=== PATIENT | male | born 1980 | race Caucasian/White ===

== ENCOUNTER 2019-01-23 15:18 | Observation (INO) | payer OTHER, SELFPAY ==
[2019-01-23] VITALS (11 sets, daily range): BP systolic 102–121; BP diastolic 66–79; PULSE 56–73; RESP 15–16; TEMP 36.3–36.6; O2SAT 93–100; BMI 24.0
[2019-01-23] MEDS: Lactated Ringers 1,000 ML 100 ML IV (11:40)
[2019-01-23] MEDS: Bupivacaine Mpf 0.5% 30 ML VIAL (13:01)
--- NOTE | 2019-01-23 15:20 | OP.PCM_ITS ---
Problem List (1) Maxillary hypoplasia Status: Acute Report of Operation Date of Procedure: 01/23/19 Pre-Operative Diagnosis: Maxillary Transverse Hypoplasia Post-Operative Diagnosis: Same Surgery/Procedure Performed:: Maxillary Lefort 1 Osteotomy Type of Anesthesia:: General Special Medications: None Specimen's removed: None Drains: None Estimated Blood Loss (mL): 100 cc Fluids Replaced: 1000 ml Description of Procedure: Patient is a 38 yo male being treated for transverse hypoplasia of the maxilla by his ship boat or barge mate. The planned procedure destraction osteogenesis procedure.The risks benefits and potential limitations have been given to the patient and his including potential for further surgeries. The patient is taken to the OR suite after final discussion and answering any questions they have. The patient was placed on the OR table in the supine position. Anesthesia monitors placed. The patient was given IV general and intubated via the nasoendotracheal route. The patient was then prepped and draped in a sterile man ner. At this time local anesthesia was administered via the mucobuccal fold of the maxilla. At this time a full thickness mucoperiosteal flap was elevated. superiorly to the infra-orbital nerves bilateral and posterior to the pterygoid plates. At this time reciprocation saw and drills used to create osteotomy from pterygoid plates posteriorly up to the anterior nasal spine, and the right maxillary sinus wall, zygomatic buttress and lateral nasal yadav completely and bilaterally. Essentially the entire maxilla was mobile but not down fractured. The distraction device was then activated. A 2-0 vicryl suture was used as a alar cinch. At this time the surgical site was irrigated and incision closed in a V-Y fashion. All bleeding was well controlled and the patient awakened and extubated in the OR. Taken to PACU in stable condition. All sponge and needle counts correct. - Complications none
[2019-01-23] MEDS: MethylPREDNISolone 125 MG/2 ML Vial IV ×2 (17:22→23:23)
[2019-01-23] MEDS: HYDROcodone Bitartrate/Apap 5/325 Tablet PO ×2 (17:25→23:24)
[2019-01-23] MEDS: Dextrose 5%-Lactated Ringers 1,000 ML 100 ML IV (21:51)
[2019-01-24] MEDS: MethylPREDNISolone 125 MG/2 ML Vial IV ×2 (06:00→11:39)
[2019-01-24] MEDS: HYDROcodone Bitartrate/Apap 5/325 Tablet PO ×2 (06:00→11:43)
[2019-01-24 06:02] VITALS: BP 104/58; PULSE 67; RESP 16; TEMP 36.6; O2SAT 96
[2019-01-24 08:40] VITALS: BP 109/63; PULSE 85; RESP 16; TEMP 36.8; O2SAT 97
[2019-01-24 15:00] VITALS: BP 128/77; PULSE 87; RESP 16; TEMP 36.9; O2SAT 97
--- NOTE | 2019-01-24 15:10 | DCINST_ITS ---
Discharge Diet: Light diet - advance as tolerated Discharge Activity: May not drive while taking narcotic pain medications., May Shower Return to work on:: 02/03/19 May shower in (days): 0 May resume sexual activity in: No Restrictions Lifting Restrictions: less than 50 pounds Call your doctor if your incision/area has: Sudden Increased Bleeding, Increased Pain/ Swelling, Increased Redness, Foul Smelling Discharge, Swelling at the incision site Call your doctor if you observe: Fever of 101 or Higher Suture Line Care: Avoid Pulling/Pushing Allergies/Adverse Reactions: Allergies No Known Allergies Allergy (Verified 01/23/19 11:16) Medications to take at Discharge Amoxicillin 875 mg PO BID #20 tab 01/22/19 Hydrocodone/Acetaminophen [[place] 5-325 Tablet] 1 ea PO Q6H PRN PRN 4 Days #14 tab 01/22/19 The following prescriptions were given: Amoxicillin 875 mg PO BID #20 tab Transmission Status: Received by [facility] Hydrocodone/Acetaminophen [[place] 5-325 Tablet] 1 ea PO Q6H PRN PRN 4 Days #14 tab PRN Reason: pain Transmission Status: Received by [facility] Primary Care Physician: FORTINO SMYTH [Other] Test Results: Test results from this visit will be discussed in further detail at your follow- up appointment, if applicable. Please Follow Up With: Dr Fleming - 1 week ADDITIONAL INSTRUCTIONS 1. For pain take Tylenol or Ibuprofen, or if prescriptions have been given to you follow the instructions on the bottle. Try to take all medication after eating some food to limit nausea from the medication. 2. If you are given an IV (intravenous) sedation or anesthetic, NO DRIVING OR OPERATING HAZARDOUS EQUIPMENT until 24 hours following surgery. 3. If you SMOKE, do not do so for at least 12 hours after surgery. 4. Excessive bleeding problems. Take a tea bag, soak in ice cold water, then bite on the tea bag for about one half hour, and change periodically. GENERAL INFORMATION REGARDING POSSIBLE COMPLICATIONS Having oral and maxillofacial procedures, whether it is a simple tooth removal or procedures more complicated, involves certain inherent side effects or risks. Because we perform a wide variety and range of surgical procedures on living, human tissues, all of which react differently, we would like you to be informed of possible side effects. These could include, but are not limited to the following, most of which will not happen to you. QUITE COMMON: 1. Discomfort 2. Swelling generally 5-7 days 3. Jaw stiffness, 7-14 days 4. Difficulty eating a normal diet until healed 5. Stretching or bruising, discomfort at the corners of the mouth and neck 6. Fever 24-48 hours after surgery NOT VERY COMMON, BUT STILL POSSIBLE: 1. Infection, necessitating the need for further prescriptions or office treatments. 2. Bleeding more than expected. It may require office treatment. 3. Delayed healing. Dry sockets 4. Injury to adjacent fillings or teeth 5. Injury to the jaw nerve resulting in numbness of the lip, cheek, chin and/or gums usually lasting 1 to 2 months, but in rare cases a portion of this can last definitely. 6. The body rejecting or spitting out little pieces of bone at the extraction area several weeks after surgery. 7. An opening from the mouth into the sinus cavity. In most cases this closes on its own without treatment, but in certain cases requires a 2nd surgical procedure. 8. Soreness, swelling, or hardness of the arm at the injection site if you had IV anesthesia A WORD ABOUT DRY SOCKETS Here is what it is... When a tooth is removed a hole or socket is left in the bone where the roots used to be present. Normal healing requires an adequate blood clot in the hole. When a blood clot is not formed properly or is lost, you will have delayed healing and usually pain. The pain generally occurs 2-3 days after your extract ions and may move forward or backward into your jaw and even to the ears. The bad taste or odor is due to the dry socket and is generally not an infection. This is how we treat it... 1. If you're given an antibiotic, continue to take all medications as directed until they are gone or your doctor tells you to discontinue it 2. A sedative dressing will often be placed in the socket. Leave it alone. If it comes out and you are not having pain that do not be concerned. 3. The dressing must be removed. An appointment will need to be made. Dr. Fortino Fleming Diplomate [place] [employer] [address] [place] [address] [place] [address]
--- NOTE | 2019-01-24 15:15 | PN.SURG_ITS ---
Patient Problems: Active and Suspected Problems Maxillary hypoplasia (Acute) - Physical Exam Vitals/I&O's: Vital Signs Temp Pulse Resp BP Pulse Ox 98.3 F 85 16 109/63 97 01/24/19 08:40 01/24/19 08:40 01/24/19 08:40 01/24/19 08:40 01/24/19 08:40 Oxygen Delivery Method Room Air Weight: 69.581 kg Body Mass Index (BMI) 24.0 Intake and Output for Last 24 Hours 01/22/19 01/23/19 01/24/19 23:59 23:59 23:59 Intake Total 1510.00 / 1510.00 1508.00 / 1508.00 Output Total 1200 / 1200 Balance 1510.00 / 1510.00 308.00 / 308.00 General: Alert, Oriented x3, Cooperative, No apparent distress HEENT: Atraumatic, PERRLA, EOMI, Normocephalic Oral: Moist Mucosa, No Gingival or Mucosal Lesions/ Ulcerations Lungs: Clear to auscultation Abdomen: Bowel Sounds Present, Soft Extremities: No clubbing, No cyanosis, No edema Skin: No rashes Neurological: Cranial nerves II-XII grossly intact Psych/Mental Status: Normal Affect Current Medications Hydrocodone Bitart/Acetaminophen ([place] 5mg-325mg) 1 tablet PO Q6H PRN PRN PRN Reason: Pain Score 4-10/10 Last Admin: 01/24/19 11:43 Dose: 1 tablet Documented by: Dextrose/Lactated Ringer's () 1,000 mls @ 100 mls/hr IV .Q10H COUNT INCLUDES THE [facility] Last Admin: 01/24/19 13:43 Dose: Not Given Documented by: Clindamycin Phosphate 600 mg/ (Dextrose) 54 mls @ 100 mls/hr IV Q8H COUNT INCLUDES THE [facility] Last Infusion: 01/24/19 12:12 Dose: Infused Documented by: Ketorolac Tromethamine (Toradol) 30 mg IV Q6H PRN PRN PRN Reason: Pain Score 6-10/10 Stop: 01/28/19 15:05 Methylprednisolone (Solu-Medrol) 125 mg IV Q6 COUNT INCLUDES THE [facility] Last Admin: 01/24/19 11:39 Dose: 125 mg Documented by: Sodium Chloride () 10 - 40 ml IV UD PRN PRN Reason: SALINE FLUSH Medical Necessity - Tobacco Use Smoking Status: Never smoker Tobacco Use: Non-smoker Assessment/Plan All Active Problems Maxillary hypoplasia (Acute)
== END 2019-01-24 15:38 | disposition home or self-care (01) ==
LOC: SDC 15:55
PROVIDERS: Admitting Provider Dentist Oral and Maxillofacial Surgery; Referring Provider Dentist Oral and Maxillofacial Surgery; Visit Provider Dentist Oral and Maxillofacial Surgery
PROC: (CPT 21141; principal; 2019-01-23 12:00)
DX: M26.02 Maxillary hypoplasia (principal)
CPT/HCPCS: 21141; 96361; 96365; 96366; 96375; 96376; 99218; J7120; G0378; G0379; J2310; J2405